=== PATIENT | male | born 1960 | race Caucasian/White ===

== ENCOUNTER 2018-01-02 06:57 | Day surgery (SDC) | payer MEDICARE, BC ==
[~2018-01-02 06:57] MED LIST: Lactated Ringers 1,000 ML IV SCH; Sodium Chloride 0.9% 10 ML Syringe FLUSH PRN
[2018-01-02] MEDS ORDERED: ceFAZolin 2 GM in Premix Bag 1 BAG IV ONE (07:45)
--- NOTE | 2018-01-02 08:12 | PCM.HPR ---
H & P Addendum review - H & P Addendum Review Date of Original H & P: 12/26/17 Date Reviewed: 01/02/18 Time Reviewed: 08:00 Patient was Examined: No Changes
[2018-01-02] MEDS ORDERED: Lidocaine 1% with EPINEPHrine 1:100,000 20 ML MDV ONE (08:33)
[2018-01-02] MEDS ORDERED: Bupivacaine 0.25% 30 ML SDV ONE (08:34)
--- NOTE | 2018-01-02 08:52 | PCM.OPNOTE ---
- General Post-Op/Procedure Note Date of Surgery/Procedure: 01/02/18 Operative Procedure(s): Umbilical Hernia repair Findings: 1 cm defect Pre Op Diagnosis: Umb hernia Post-Op Diagnosis: Same Anesthesia Technique: Local, MAC Primary Surgeon: Shorty HERNANDEZ in mLs: 1 Complications: None Condition: Good
[2018-01-02 11:14] VITALS: BP 123/68
--- NOTE | 2018-01-02 15:25 | OR ---
DATE OF OPERATION: 01/02/2018 SURGEON: Shorty Curtis MD PREOPERATIVE DIAGNOSIS: Umbilical hernia repair. POSTOPERATIVE DIAGNOSIS: Umbilical hernia repair. PROCEDURE PERFORMED: Umbilical hernia repair. ANESTHESIA: Local MAC. PROCEDURE IN DETAIL: The patient was brought to the operating room, where time- out was performed. His abdomen was clipped, prepped with ChloraPrep, and draped sterilely. A 50:50 mixture of 1% lidocaine with epinephrine and 0.25% Marcaine were infiltrated in the periumbilical region. Later the fascia was injected. An infraumbilical incision was made and extended into the subcutaneous tissue. Hernia sac was bluntly dissected from the undersurface of the skin. The sac was dissected down to the level of the fascia and then reduced in to the preperitoneal space. The edges of the fascia were cleared and were healthy. The defect was approximately 1 cm in diameter with no tension and reapproximated easily. This was then repaired using interrupted far near and near far 0 prolene sutures. The wound was irrigated and the umbilical skin secured to the fascia with 3-0 Vicryl. The subcutaneous tissue was reapproximated with 3-0 Vicryl and skin closed with 4-0 Vicryl subcuticular sutures. Benzoin and Steri- Strips were placed and a sterile dressing applied. The patient tolerated the procedure well. ESTIMATED BLOOD LOSS: 1 mL. He returned to postanesthesia in stable condition. /[id number] BLUE/KHURRAM
--- NOTE | 2018-01-02 15:56 | US ---
INDICATION: Needle placement fascial plane. ULTRASONIC GUIDANCE FOR NEEDLE PLACEMENT IN FASCIAL PLANE: Ultrasonic images were obtained and showed the needle within the correct fascial plane in the abdomen on right and left. [facility]
== END 2018-01-02 11:05 | disposition home or self-care (01) ==
LOC: FB.SDS 06:57
PROVIDERS: ATTEND Surgery
DX: K42.9 Umbilical hernia without obstruction or gangrene (principal); I25.10 Atherosclerotic heart disease of native coronary artery without angina pectoris; I26.99 Other pulmonary embolism without acute cor pulmonale; E78.5 Hyperlipidemia, unspecified; Z88.8 Allergy status to other drugs, medicaments and biological substances; F17.210 Nicotine dependence, cigarettes, uncomplicated; Z79.899 Other long term (current) drug therapy
CPT/HCPCS: 49585; J3490; J7120